=== PATIENT | female | born 1960 | race Caucasian/White ===

== ENCOUNTER → 2022-03-20 | Outpatient (CLI) | payer BC ==
--- NOTE | 2022-03-20 10:42 | XR ---
EXAMINATION TYPE: XR cervical spine limited DATE OF EXAM: 03/20/2022 CLINICAL HISTORY: pain TECHNIQUE: 3 views of the cervical spine are submitted. COMPARISON: None. FINDINGS: There is satisfactory in alignment without evidence of acute fracture or dislocation. The pre-vertebral soft tissue appears within normal limits. Mild degenerative disc space narrowing and m inimal spondylosis C3-4 and C4-5. The C1-C2 articulation is unremarkable on the open mouth view. IMPRESSION: No acute fracture or dislocation is seen in the cervical spine.
== END | disposition home or self-care (01) ==
LOC: RADXRYALE 09:59
PROVIDERS: ATTEND Family Medicine
DX: M54.2 Cervicalgia (principal)
CPT/HCPCS: 72040